=== PATIENT | male | born 1960 | race Caucasian/White ===

== ENCOUNTER 2021-03-04 15:32 | Outpatient (CLI) | payer OTHER, MEDICARE, SELFPAY ==
--- NOTE | ~2021-03-04 | CT_ITS ---
EXAMINATION: CT lung screening DATE: 03/04/2021 15:52 INDICATION: Nicotine dependence TECHNIQUE: Computed tomography (CT) of the chest was performed without intravenous contrast. The dose -length product was 167.71 mGy-cm. Automated exposure control and iterative reconstruction technique were employed. COMPARISON: None FINDINGS: No thoracic lymphadenopathy. No significant pleural or pericardial effusion. Heart size is normal. There is atherosclerosis of the aorta and coronary arteries. There are several rounded calcif ications in the spleen which appears enlarged. Calcifications are likely benign. There is apical pleu ral thickening/scarring. There are a few scattered subpleural nodules in the lung apices measuring 3 mm or less. There is moderate emphysema. There is a 3 mm right upper lobe nodule, image 55. Mild thor acic spondylosis. IMPRESSION: 1. Lung-RADS category 2: Benign appearance or behavior. Continue annual screening with noncontrast lo w-dose chest CT in 12 months. 2: Possible splenomegaly with several rounded splenic calcifications, most likely benign. Reviewed, dictated and finalized at location A. IMPRESSION: 1. Lung-RADS category 2: Benign appearance or behavior. Continue annual screeni ng with noncontrast low-dose chest CT in 12 months. 2: Possible splenomegaly with several rounded splenic calcifications, most lik veronica benign.
== END 2021-03-04 15:33 | disposition home or self-care (01) ==
LOC: ANHIMG 15:37
PROVIDERS: PCP Nurse Practitioner Family; Visit Provider Nurse Practitioner Family
DX: F17.210 Nicotine dependence, cigarettes, uncomplicated (principal); R93.89 Abnormal findings on diagnostic imaging of other specified body structures
CPT/HCPCS: 71271